=== PATIENT | female | born 1975 | race African-American/Black ===

== ENCOUNTER 2016-09-25 15:47 | Emergency (ER) | payer OTHER ==
--- NOTE | 2016-09-25 16:43 | ED ---
General Adult HPI - General Chief complaint: Abdominal Pain Stated complaint: Abd pain Time Seen by Provider: 09/25/16 16:10 Source: patient Mode of arrival: ambulatory Limitations: no limitations - History of Present Illness Initial comments: Patient is a 41-year-old female presenting with left flank pain for 2 weeks. Patient states she's been taking Tylenol and Motrin with some relief. Patient denies fever /chills. Patient denies dysuria or hematuria. Patient states she had surgically removed kidney stone back in August 2016 in [place]. Patient denies abdominal pain, chest pain, shortness breath, nausea, vomiting, diarrhea. - Related Data Home Medications Medication Instructions Recorded Confirmed No Known Home Medications [No 09/25/16 09/25/16 Known Home Medications] Allergies Allergy/AdvReac Type Severity Reaction Status Date / Time hydrocodone AdvReac Not strong Verified 09/25/16 17:01 enough to manage patient's pain Review of Systems ROS Statement: Those systems with pertinent positive or pertinent negative responses have been documented in the HPI. Constitutional: No fever and no chills. HENT: No congestion, no rhinorrhea and no sore throat. Eyes: No discharge and no redness. Respiratory: No cough and no shortness of breath. Cardiovascular: No chest pain and no palpitations. Gastrointestinal: No nausea, no vomiting, no abdominal pain and no diarrhea. Genitourinary: No dysuria and no hematuria. Musculoskeletal: +flank pain and no arthralgias. Skin: No pallor and no rash. Neurological: No dizziness and No headaches. ROS Other: All systems not noted in ROS Statement are negative. Past Medical History Additional Past Medical History / Comment(s): kidney stones, PCOS History of Any Multi-Drug Resistant Organisms: None Reported Past Surgical History: Bariatric Surgery Additional Past Surgical History / Comment(s): lithotripsy, gastic bypass, cervical ablation, eye surgery, oral surgery Past Psychological History: No Psychological Hx Reported Smoking Status: Never smoker Past Alcohol Use History: Occasional Past Drug Use History: Prescription Drug Abuse General Exam - General Exam Comments Initial Comments: Constitutional: Patient appears well-developed and well-nourished. No distress. Patient is very well appearing. Head: Normocephalic and atraumatic. Eyes: Conjunctivae and EOM are normal. Right eye exhibits no discharge. Left eye exhibits no discharge. No scleral icterus. Neck: Normal range of motion. Neck supple. Cardiovascular: Normal rate and regular rhythm. No murmur heard. Pulmonary/Chest: Effort normal and breath sounds normal. No respiratory distress. No wheezes. Abdominal: Soft. No distension. There is no tenderness. There is no rebound and no guarding. Musculoskeletal: Normal range of motion. No edema or tenderness. Neurological: Patient alert and oriented to person, place, and time. Skin: Skin is warm and dry. Not diaphoretic. Nursing notes and vitals reviewed. Limitations: no limitations Course Vital Signs 09/25/16 09/25/16 09/25/16 15:53 17:20 18:50 Temperature 97.8 F 98.0 F Pulse Rate 69 68 68 Respiratory 20 16 16 Rate Blood Pressure 112/55 115/58 112/54 O2 Sat by Pulse 100 99 98 Oximetry - Reevaluation(s) Reevaluation #1: 09/25/16 18:55 Patient updated on results and CAT scan showing left ureteral stent as likely cause of her irritation. Patient had that placed downtown in [place] by an unknown urologist. She has information at home. Instructed to contact urologist for plan of care with ureteral stent. Medical Decision Making - Medical Decision Making Patient's a 41-year-old female well-appearing presenting with left flank discomfort. She takes Motrin and Tylenol with resolution of symptoms. Patient has unremarkable CBC, BMP, UA. CAT scan shows a left ureteral stent. Patient symptoms likely related to ureteral stent for which she will contact her urologist for plan of care. Prior to discharge, patient was resting comfortably in bed. Course of stay improved. Denies pain. Discussed physical exam and diagnostic tests with patient. Questions answered and patient is agreeable to discharge with close follow up with Primary Care Physician. Instructed to return to Emergency Department if symptoms worsen. - Lab Data Result diagrams: 09/25/16 16:36 09/25/16 16:36 Lab Results 09/25/16 09/25/16 09/25/16 Range/Units 16:23 16:36 16:36 WBC 5.5 (3.8-10.6) k/uL RBC 3.68 L (3.80-5.40) m/uL Hgb 10.4 L (11.4-16.0) gm/dL Hct 33.2 L (34.0-46.0) % MCV 90.2 (80.0-100.0) fL MCH 28.2 (25.0-35.0) pg MCHC 31.3 (31.0-37.0) g/dL RDW 14.0 (11.5-15.5) % Plt Count 209 (150-450) k/uL Neutrophils % 49 % Lymphocytes % 40 % Monocytes % 5 % Eosinophils % 3 % Basophils % 0 % Neutrophils # 2.7 (1.3-7.7) k/uL Lymphocytes # 2.2 (1.0-4.8) k/uL Monocytes # 0.3 (0-1.0) k/uL Eosinophils # 0.1 (0-0.7) k/uL Basophils # 0.0 (0-0.2) k/uL Hypochromasia Moderate Sodium 141 (137-145) mmol/L Potassium 4.0 (3.5-5.1) mmol/L Chloride 109 H (98-107) mmol/L Carbon Dioxide 24 (22-30) mmol/L Anion Gap 8 mmol/L BUN 7 (7-17) mg/dL Creatinine 0.60 (0.52-1.04) mg/dL Est GFR (MDRD) Af Amer >60 (>60 ml/min/1.73 sqM) Est GFR (MDRD) Non-Af >60 (>60 ml/min/1.73 sqM) Glucose 70 L (74-99) mg/dL Calcium 8.5 (8.4-10.2) mg/dL Urine Color Light Yellow Urine Appearance Clear (Clear) Urine pH 6.5 (5.0-8.0) Ur Specific [place] 1.005 (1.001-1.035) Urine Protein Negative (Negative) Urine Glucose (UA) Negative (Negative) Urine Ketones Negative (Negative) Urine Blood Moderate H (Negative) Urine Nitrite Negative (Negative) Urine Bilirubin Negative (Negative) Urine Urobilinogen <2.0 (<2.0) mg/dL Ur Leukocyte Esterase Moderate H (Negative) Urine RBC 6 H (0-5) /hpf Urine WBC 4 (0-5) /hpf Urine Bacteria Rare H (None) /hpf Urine Mucus Rare H (None) /hpf Disposition Clinical Impression: Left flank pain Disposition: HOME SELF-CARE Condition: Good Instructions: Flank Pain (ED) Referrals: Nonstaff,Physician [Primary Care Provider] - 1-2 days
[2016-09-25 16:47] LABS: Basophils % (A) 0 %; CH 27.4; CHCM 30.4; Eosinophils # (A) 0.1 k/uL (0-0.7); Eosinophils % (A) 3 %; HCT 33.2 % (34.0-46.0); HDW 2.78; HGB 10.4 gm/dL (11.4-16.0); Hypochromasia Moderate; Luc % (Auto) 4; Lymphocytes # (A) 2.2 k/uL (1.0-4.8); Lymphocytes % (A) 40 %; MCH 28.2 pg (25.0-35.0); MCHC 31.3 g/dL (31.0-37.0); MCV 90.2 fL (80.0-100.0); Mean Platelet Volume 8.9; Monocytes # (A) 0.3 k/uL (0-1.0); Monocytes % (A) 5 %; Neutrophils # (A) 2.7 k/uL (1.3-7.7); Neutrophils % (A) 49 %; RBC 3.68 m/uL (3.80-5.40); WBC 5.5 k/uL (3.8-10.6)
[2016-09-25 16:52] LABS: Appearance,Urine Clear (Clear); Bacteria,Urine Rare /hpf; Bilirubin,Urine Negative (Negative); Glucose,Urine (UA) Negative (Negative); Ketones,Urine Negative (Negative); Leukocyte Esterase,Urine Moderate (Negative); Mucus,Urine Rare /hpf; Nitrite,Urine Negative (Negative); PH, Urine 6.5 (5.0-8.0); Particle Count 1033; Protein,Urine Negative (Negative); RBC,Urine 6 /hpf (0-5); Specific Gravity,Urine 1.005 (1.001-1.035); UA Billing (MACRO vs. MICRO) MICRO; Urobilinogen,Urine <2.0 mg/dL (<2.0); WBC,Urine 4 /hpf (0-5)
[2016-09-25 17:06] LABS: Anion Gap 8 mmol/L; Blood Urea Nitrogen 7 mg/dL (7-17); Calcium 8.5 mg/dL (8.4-10.2); Carbon Dioxide 24 mmol/L (22-30); Chloride 109 mmol/L (98-107); Glucose 70 mg/dL (74-99); Non-African American GFR(MDRD) >60 (>60 ml/min/1.73 sqM); Sodium 141 mmol/L (137-145)
--- NOTE | 2016-09-25 17:16 | CT ---
EXAMINATION TYPE: CT renal stones wo con DATE OF EXAM: 09/25/2016 HISTORY: patient complains of left flank pain. Patient has a history of prior renal stones and polyc ystic ovaries. CT DLP: 301.8 mGycm. Automated Exposure Control for Dose Reduction was Utilized. TECHNIQUE: CT scan of the abdomen and pelvis is performed without oral or IV contrast. COMPARISON: NONE FINDINGS: Within the limitations of a non-contrast study, the following observations are made. LUNG BASES: No significant abnormality is appreciated. LIVER/GB: No significant abnormality is appreciated. PANCREAS: No significant abnormality is seen. SPLEEN: No significant abnormality is seen. ADRENALS: No significant abnormality is seen. KIDNEYS: There is a 0.3 cm calcification posterior mid left kidney. A left ureteral stent is evident. There may be a punctate calcification adjacent to the ureteral stent within the urinary pelvis. 0.3 cm calcification is within the inferior pole left kidney. There is a calcification adjacent to the di stal ureteral stent above the ureterovesical junction. There is a nonobstructive 0.6 cm calcification within the superior pole right kidney. BOWEL: No significant abnormality is seen. Postsurgical changes are present. GENITAL ORGANS: No gross abnormality seen. LYMPH NODES: No greater than 1cm abdominal or pelvic lymph nodes are appreciated. OSSEOUS STRUCTURES: No significant abnormality is seen. OTHER: No significant additional abnormality is seen. IMPRESSION: 1. Left ureteral stent. No hydronephrosis is evident. 2. Multiple nonobstructing renal stones present bilaterally. 3. Calcification appears to be adjacent to the distal left ureteral stent within the pelvis
[2016-09-25 17:37] VITALS: PULSE 68; RESP 16
[2016-09-25 18:51] VITALS: BP 112/54; TEMP 98
== END 2016-09-25 18:51 | disposition home or self-care (01) ==
LOC: EC 15:47
DX: R10.9 Unspecified abdominal pain (principal); Z88.5 Allergy status to narcotic agent; Z98.890 Other specified postprocedural states
CPT/HCPCS: 36415; 74150; 80048; 81001; 85025; 99284

== ENCOUNTER 2016-09-28 19:17 | Emergency (ER) | payer OTHER ==
[2016-09-28 19:31] VITALS: TEMP 98.8
[2016-09-28] MEDS ORDERED: SODIUM CHLORIDE 0.9% 1,000 ML IV STA ×2 (19:33)
[2016-09-28] MEDS ORDERED: SODIUM CHLORIDE 0.9% 500 ML IV STA (19:33)
[2016-09-28 19:54] LABS: Basophils % (A) 0 %; CH 27.5; CHCM 30.3; Eosinophils # (A) 0.1 k/uL (0-0.7); Eosinophils % (A) 2 %; HCT 34.2 % (34.0-46.0); HDW 2.78; HGB 10.4 gm/dL (11.4-16.0); Hypochromasia Marked; Luc # (Auto) 0.23; Luc % (Auto) 4; Lymphocytes # (A) 1.9 k/uL (1.0-4.8); Lymphocytes % (A) 30 %; MCH 27.7 pg (25.0-35.0); MCHC 30.5 g/dL (31.0-37.0); MCV 90.8 fL (80.0-100.0); Mean Platelet Volume 8.6; Monocytes # (A) 0.6 k/uL (0-1.0); Monocytes % (A) 9 %; Neutrophils # (A) 3.4 k/uL (1.3-7.7); Neutrophils % (A) 55 %; RBC 3.77 m/uL (3.80-5.40); WBC 6.1 k/uL (3.8-10.6); WBC (Perox) 6.32
--- NOTE | 2016-09-28 19:54 | ED ---
General Adult HPI - General Chief complaint: Overdose Stated complaint: diabetic issues Time Seen by Provider: 09/28/16 19:33 Source: patient, EMS, RN notes reviewed, old records reviewed Mode of arrival: EMS Limitations: no limitations - History of Present Illness Initial comments: This is a 41-year-old female ER for evaluation regarding overdose, recreational overdose, recreational drug use. Patient takes Mucinex DM for recreation. She took an excessive dose tonight again denying homicidal or suicidal, deny any other drug use. Patient took medication to feel high. - Related Data Home Medications Medication Instructions Recorded Confirmed No Known Home Medications [No 09/25/16 09/28/16 Known Home Medications] Allergies Allergy/AdvReac Type Severity Reaction Status Date / Time No Known Allergies Allergy Verified 09/28/16 19:36 Review of Systems ROS Statement: Those systems with pertinent positive or pertinent negative responses have been documented in the HPI. ROS Other: All systems not noted in ROS Statement are negative. Past Medical History Additional Past Medical History / Comment(s): kidney stones, PCOS History of Any Multi-Drug Resistant Organisms: None Reported Past Surgical History: Bariatric Surgery Additional Past Surgical History / Comment(s): lithotripsy, gastic bypass, cervical ablation, eye surgery, oral surgery Past Psychological History: No Psychological Hx Reported Smoking Status: Never smoker Past Alcohol Use History: Occasional Past Drug Use History: Prescription Drug Abuse General Exam Limitations: no limitations General appearance: alert, in no apparent distress, anxious Head exam: Present: atraumatic, normocephalic, normal inspection Eye exam: Present: normal appearance, PERRL, EOMI. Absent: scleral icterus, conjunctival injection, periorbital swelling ENT exam: Present: normal exam, mucous membranes moist Neck exam: Present: normal inspection. Absent: tenderness, meningismus, lymphadenopathy Respiratory exam: Present: normal lung sounds bilaterally. Absent: respiratory distress, wheezes, rales, rhonchi, stridor Cardiovascular Exam: Present: normal rhythm, tachycardia, normal heart sounds. Absent: systolic murmur, diastolic murmur, rubs, gallop, clicks GI/Abdominal exam: Present: soft, normal bowel sounds. Absent: distended, tenderness, guarding, rebound, rigid Extremities exam: Present: normal inspection, full ROM, normal capillary refill. Absent: tenderness, pedal edema, joint swelling, calf tenderness Back exam: Present: normal inspection Neurological exam: Present: alert, oriented X3, CN II-XII intact Psychiatric exam: Present: normal affect, normal mood Skin exam: Present: warm, dry, intact, normal color. Absent: rash Course Vital Signs 09/28/16 09/28/16 09/28/16 19:26 19:53 20:35 Temperature 98.8 F Pulse Rate 109 H 103 H 106 H Respiratory 16 18 16 Rate Blood Pressure 120/66 146/83 132/81 O2 Sat by Pulse 95 100 98 Oximetry - Reevaluation(s) Reevaluation #1: 09/28/16 20:38 Poison control was notified regarding patient Reevaluation #2: 09/28/16 20:46 Patient is in no acute distress, EKG Findings - EKG Comments: EKG Findings:: EKG shows sinus tachycardia rate 103, MS 164, QRS 100, QTC 463 Medical Decision Making - Medical Decision Making 21 female in the ER with recreational drug abuse, history of recreational drug abuse, not homicidal or suicidal. Into be with poison control, they recommend supportive care, patient is and needs no supportive care she is alert oriented vital signs are normal and happened stable throughout emergency department stay - Lab Data Result diagrams: 09/28/16 19:40 09/28/16 19:40 Lab Results 09/28/16 09/28/16 09/28/16 Range/Units 19:40 19:40 19:40 WBC 6.1 (3.8-10.6) k/uL RBC 3.77 L (3.80-5.40) m/uL Hgb 10.4 L (11.4-16.0) gm/dL Hct 34.2 (34.0-46.0) % MCV 90.8 (80.0-100.0) fL MCH 27.7 (25.0-35.0) pg MCHC 30.5 L (31.0-37.0) g/dL RDW 14.0 (11.5-15.5) % Plt Count 203 (150-450) k/uL Neutrophils % 55 % Lymphocytes % 30 % Monocytes % 9 % Eosinophils % 2 % Basophils % 0 % Neutrophils # 3.4 (1.3-7.7) k/uL Lymphocytes # 1.9 (1.0-4.8) k/uL Monocytes # 0.6 (0-1.0) k/uL Eosinophils # 0.1 (0-0.7) k/uL Basophils # 0.0 (0-0.2) k/uL Hypochromasia Marked PT (9.0-12.0) sec INR (<1.1) APTT (22.0-30.0) sec Sodium 141 (137-145) mmol/L Potassium 3.7 (3.5-5.1) mmol/L Chloride 114 H (98-107) mmol/L Carbon Dioxide 19 L (22-30) mmol/L Anion Gap 8 mmol/L BUN 7 (7-17) mg/dL Creatinine 0.80 (0.52-1.04) mg/dL Est GFR (MDRD) Af Amer >60 (>60 ml/min/1.73 sqM) Est GFR (MDRD) Non-Af >60 (>60 ml/min/1.73 sqM) Glucose 111 H (74-99) mg/dL Calcium 8.2 L (8.4-10.2) mg/dL Phosphorus 4.1 (2.5-4.5) mg/dL Magnesium 1.9 (1.6-2.3) mg/dL Total Bilirubin 0.5 (0.2-1.3) mg/dL AST 49 H (14-36) U/L ALT 55 H (9-52) U/L Alkaline Phosphatase 129 H (38-126) U/L Total Creatine Kinase 949 H (30-135) U/L CK-MB (CK-2) 1.5 (0.0-2.4) ng/mL CK-MB (CK-2) Rel Index 0.2 Troponin I <0.012 (0.000-0.034) ng/mL Total Protein 6.7 (6.3-8.2) g/dL Albumin 4.0 (3.5-5.0) g/dL Urine Color Urine Appearance (Clear) Urine pH (5.0-8.0) Ur Specific [place] (1.001-1.035) Urine Protein (Negative) Urine Glucose (UA) (Negative) Urine Ketones (Negative) Urine Blood (Negative) Urine Nitrite (Negative) Urine Bilirubin (Negative) Urine Urobilinogen (<2.0) mg/dL Ur Leukocyte Esterase (Negative) Urine RBC (0-5) /hpf Urine WBC (0-5) /hpf Ur Squamous Epith Cells (0-4) /hpf Amorphous Sediment (None) /hpf Hyaline Casts (0-2) /lpf Urine Mucus (None) /hpf Salicylates <1.0 mg/dL Acetaminophen <10.0 ug/mL 09/28/16 09/28/16 Range/Units 19:40 19:51 WBC (3.8-10.6) k/uL RBC (3.80-5.40) m/uL Hgb (11.4-16.0) gm/dL Hct (34.0-46.0) % MCV (80.0-100.0) fL MCH (25.0-35.0) pg MCHC (31.0-37.0) g/dL RDW (11.5-15.5) % Plt Count (150-450) k/uL Neutrophils % % Lymphocytes % % Monocytes % % Eosinophils % % Basophils % % Neutrophils # (1.3-7.7) k/uL Lymphocytes # (1.0-4.8) k/uL Monocytes # (0-1.0) k/uL Eosinophils # (0-0.7) k/uL Basophils # (0-0.2) k/uL Hypochromasia PT 10.7 (9.0-12.0) sec INR 1.1 (<1.1) APTT 22.8 (22.0-30.0) sec Sodium (137-145) mmol/L Potassium (3.5-5.1) mmol/L Chloride (98-107) mmol/L Carbon Dioxide (22-30) mmol/L Anion Gap mmol/L BUN (7-17) mg/dL Creatinine (0.52-1.04) mg/dL Est GFR (MDRD) Af Amer (>60 ml/min/1.73 sqM) Est GFR (MDRD) Non-Af (>60 ml/min/1.73 sqM) Glucose (74-99) mg/dL Calcium (8.4-10.2) mg/dL Phosphorus (2.5-4.5) mg/dL Magnesium (1.6-2.3) mg/dL Total Bilirubin (0.2-1.3) mg/dL AST (14-36) U/L ALT (9-52) U/L Alkaline Phosphatase (38-126) U/L Total Creatine Kinase (30-135) U/L CK-MB (CK-2) (0.0-2.4) ng/mL CK-MB (CK-2) Rel Index Troponin I (0.000-0.034) ng/mL Total Protein (6.3-8.2) g/dL Albumin (3.5-5.0) g/dL Urine Color Colorless Urine Appearance Clear (Clear) Urine pH 5.5 (5.0-8.0) Ur Specific [place] 1.013 (1.001-1.035) Urine Protein Trace H (Negative) Urine Glucose (UA) 1+ H (Negative) Urine Ketones Negative (Negative) Urine Blood Moderate H (Negative) Urine Nitrite Negative (Negative) Urine Bilirubin Negative (Negative) Urine Urobilinogen <2.0 (<2.0) mg/dL Ur Leukocyte Esterase Large H (Negative) Urine RBC 4 (0-5) /hpf Urine WBC 8 H (0-5) /hpf Ur Squamous Epith Cells 1 (0-4) /hpf Amorphous Sediment Rare H (None) /hpf Hyaline Casts 1 (0-2) /lpf Urine Mucus Rare H (None) /hpf Salicylates mg/dL Acetaminophen ug/mL Disposition Clinical Impression: Drug overdose Disposition: HOME SELF-CARE Condition: Good Instructions: Methamphetamine Abuse (ED), Polysubstance Abuse (ED) Referrals: Nonstaff,Physician [Primary Care Provider] - 1-2 days
[2016-09-28 20:05] LABS: ALT 55 U/L (9-52); AST 49 U/L (14-36); Acetaminophen <10.0 ug/mL; Alkaline Phosphatase 129 U/L (38-126); Anion Gap 8 mmol/L; Blood Urea Nitrogen 7 mg/dL (7-17); Calcium 8.2 mg/dL (8.4-10.2); Carbon Dioxide 19 mmol/L (22-30); Chloride 114 mmol/L (98-107); Glucose 111 mg/dL (74-99); Magnesium 1.9 mg/dL (1.6-2.3); Non-African American GFR(MDRD) >60 (>60 ml/min/1.73 sqM); Phosphorous 4.1 mg/dL (2.5-4.5); Potassium 3.7 mmol/L (3.5-5.1); Salicylate <1.0 mg/dL; Sodium 141 mmol/L (137-145); Total Bilirubin 0.5 mg/dL (0.2-1.3); Total Protein 6.7 g/dL (6.3-8.2)
[2016-09-28 20:08] LABS: Amorphous Sediment,Urine Rare /hpf; Appearance,Urine Clear (Clear); Bilirubin,Urine Negative (Negative); Glucose,Urine (UA) 1+ (Negative); Ketones,Urine Negative (Negative); Leukocyte Esterase,Urine Large (Negative); Mucus,Urine Rare /hpf; Nitrite,Urine Negative (Negative); PH, Urine 5.5 (5.0-8.0); Particle Count 1259; Protein,Urine Trace (Negative); RBC,Urine 4 /hpf (0-5); Specific Gravity,Urine 1.013 (1.001-1.035); Squamous Epithelial Cell,Urine 1 /hpf (0-4); UA Billing (MACRO vs. MICRO) MICRO; Urobilinogen,Urine <2.0 mg/dL (<2.0); WBC,Urine 8 /hpf (0-5)
[2016-09-28 20:15] LABS: Creatine Kinase 949 U/L (30-135)
[2016-09-28 20:25] LABS: INR 1.1 (<1.1); Partial Thromboplastin Time 22.8 sec (22.0-30.0); Prothrombin Time 10.7 sec (9.0-12.0)
[2016-09-28 20:28] LABS: Creatine Kinase MB 1.5 ng/mL (0.0-2.4); Troponin I <0.012 ng/mL (0.000-0.034)
[2016-09-28 20:37] VITALS: RESP 16
[2016-09-28 21:23] VITALS: BP 139/80; PULSE 107
== END 2016-09-28 21:28 | disposition home or self-care (01) ==
LOC: EC 19:17
DX: T48.4X1A Poisoning by expectorants, accidental (unintentional), initial encounter (principal)
CPT/HCPCS: 36415; 80053; 81001; 82550; 82553; 83520; 83735; 84100; 84484; 85025; 85610; 85730; 87086; 93005; 96360; 96361; 99285

== ENCOUNTER 2016-11-24 17:28 | Emergency (ER) | payer OTHER ==
[2016-11-24 18:43] VITALS: RESP 20
[2016-11-24] MEDS ORDERED: KETOROLAC 60 MG/2 ML VIAL IM STA (19:23)
--- NOTE | 2016-11-24 19:36 | ED ---
Fall HPI - General Chief Complaint: Fall Stated Complaint: Fall Time Seen by Provider: 11/24/16 18:46 Source: patient Mode of arrival: ambulatory - History of Present Illness Initial Comments: 41-year-old female patient presented to emergency department today for evaluation after a fall. Patient states that this morning when getting out of bed she was rushing, stumbled, and fell hitting her chin on the dresser. Patient states she also received an abrasion to her left knee and injured the nail on her right great toe. Patient states that she presented to get an evaluation of the wounds and to be checked out. Patient denies losing consciousness. She states she does have bruising to the area underneath the chin. She denies any pain with range of motion of the jaw, states she has eaten without any difficulties or pain. She states that she is able to ambulate without difficulty, and without pain to the knee or foot. She denies any limitation to range of motion of the knee or foot. Patient states she did clean both the abrasion to her left knee and her toe after the injury. Patient denies any headache, neck pain, back pain, chest pain, shortness of breath, dizziness, weakness, abdominal pain, nausea, vomiting, or difficulties with bowel movements or urination. - Related Data Home Medications Medication Instructions Recorded Confirmed No Known Home Medications [No 09/25/16 11/24/16 Known Home Medications] Allergies Allergy/AdvReac Type Severity Reaction Status Date / Time No Known Allergies Allergy Verified 11/24/16 18:42 Review of Systems ROS Statement: Those systems with pertinent positive or pertinent negative responses have been documented in the HPI. ROS Other: All systems not noted in ROS Statement are negative. Past Medical History Additional Past Medical History / Comment(s): kidney stones, PCOS History of Any Multi-Drug Resistant Organisms: None Reported Past Surgical History: Bariatric Surgery Additional Past Surgical History / Comment(s): lithotripsy, gastic bypass, cervical ablation, eye surgery, oral surgery Past Psychological History: No Psychological Hx Reported Smoking Status: Never smoker Past Alcohol Use History: Occasional Past Drug Use History: Prescription Drug Abuse General Exam Limitations: no limitations General appearance: alert, in no apparent distress Head exam: Present: normocephalic, normal inspection, other (Circular purple bruise noted to the central submandibular area. Full range of motion of the draw without pain or limitation. Able to open jaw with resistance.). Absent: atraumatic Eye exam: Present: normal appearance, PERRL, EOMI. Absent: scleral icterus, conjunctival injection, periorbital swelling ENT exam: Present: normal exam, normal oropharynx, mucous membranes moist, TM's normal bilaterally Neck exam: Present: normal inspection, full ROM, other (Nontender, no step-off, no deformity noted to for midline palpation of the posterior cervical spine. Full range of motion of the neck without pain or limitation.). Absent: tenderness, meningismus, lymphadenopathy Respiratory exam: Present: normal lung sounds bilaterally. Absent: respiratory distress, wheezes, rales, rhonchi, stridor Cardiovascular Exam: Present: regular rate, normal rhythm, normal heart sounds. Absent: systolic murmur, diastolic murmur, rubs, gallop, clicks GI/Abdominal exam: Present: soft, normal bowel sounds. Absent: distended, tenderness, guarding, rebound, rigid Extremities exam: Present: full ROM, normal capillary refill, other (Right great toenail exhibits partial avulsion at the distal left edge. Some dried blood noted. Remainder of the nail bed is intact. Patient has full range of motion of the toe without pain or limitation. Patient is nontender to palpation of the toe. ). Absent: normal inspection (2 cm superficial abrasion noted to the left knee over the patella, no bleeding. No swelling, erythema, or deformity.), tenderness (No tenderness to palpation noted over the medial, lateral, or anterior knee.), pedal edema, joint swelling, calf tenderness Back exam: Present: normal inspection, full ROM, other (No tenderness, step-off , or deformity noted to for midline palpation of the thoracic and lumbar spine. Full range of motion without pain or limitation.). Absent: tenderness, CVA tenderness (R), CVA tenderness (L), vertebral tenderness Neurological exam: Present: alert, oriented X3, CN II-XII intact Psychiatric exam: Present: normal affect, normal mood Skin exam: Present: warm, dry, intact, normal color. Absent: rash Course Vital Signs 11/24/16 11/24/16 18:39 19:59 Temperature 98 F 97.3 F L Pulse Rate 95 96 Respiratory 20 20 Rate Blood Pressure 136/85 130/76 O2 Sat by Pulse 100 99 Oximetry Medical Decision Making - Medical Decision Making 41-year-old female patient presented to emergency department for evaluation after a fall this morning. X-ray of her mandible was obtained and showed no acute fracture or dislocation. Patient neurologically intact. Patient will be discharged back to [place] with instructions to keep wounds clean and dry. She'll be instructed take Tylenol and Motrin for pain control. Instructed to follow-up with her primary care physician for recheck in 1-2 days. Instructed to return immediately for any new, worsening, or concerning symptoms. Patient verbalizes understanding and agrees with this plan. Disposition Clinical Impression: Contusion of chin, Abrasion of knee, left, Nail bed injury Disposition: HOME SELF-CARE Instructions: Fall Prevention for Older Adults (ED), Abrasion (ED), Facial Contusion (ED) Additional Instructions: Keep wounds clean and dry. Take ibuprofen as needed for pain. Follow up with primary care physician for recheck in 1-2 days. Return immediately for any new , worsening, or concerning symptoms. Referrals: Nonstaff,Physician [Primary Care Provider] - 1-2 days Time of Disposition: 19:51
--- NOTE | 2016-11-24 19:48 | XR ---
EXAMINATION TYPE: XR mandible complete DATE OF EXAM: 11/24/2016 COMPARISON: NONE HISTORY: Pain TECHNIQUE: 5 views FINDINGS: Mandibular ring appears intact. I see no fracture. There is a metal plate noted from surger y on the right maxilla. I see no focal bone destruction. Temporomandibular joints appear normal. IMPRESSION: Negative mandible exam.
[2016-11-24 20:00] VITALS: BP 130/76; PULSE 96; TEMP 97.3
== END 2016-11-24 19:59 | disposition home or self-care (01) ==
LOC: EC 17:28
DX: S91.201A Unspecified open wound of right great toe with damage to nail, initial encounter (principal); S00.83XA Contusion of other part of head, initial encounter; S80.212A Abrasion, left knee, initial encounter; W06.XXXA Fall from bed, initial encounter
CPT/HCPCS: 99283; 96372; 70110; J1885